=== PATIENT | female | born 1990 | race Native Hawaiian/Other Pacific Islander ===

== ENCOUNTER 2016-11-03 20:49 | Inpatient (IN) | payer BC ==
--- NOTE | 2016-11-03 21:27 | ED PDOC ---
HPI: Psych/Substance Abuse Time Seen by Provider: 11/03/16 20:59 Chief Complaint (Nursing): Psychiatric Evaluation Chief Complaint (Provider): Psychiatric Evaluation History Per: Patient History/Exam Limitations: no limitations Onset/Duration Of Symptoms: Mins (prior to arrival) Current Symptoms Are (Timing): Still Present Additional Complaint(s): Telma Abreu is a 26 year old female with a previous medical history of depression, who presents to the emergency department for a psychiatric evaluation of depression associated with suicidal ideation of Ativan overdose prior to arrival. Onset began when she recently saw an ex-boyfriend out on a date in which she stated she is recently after 10 years of marriage. Admits to binge drinking to cope but denies history of schizophrenia or bipolar disorder. Of note, patient reports seeing a psychiatrist on an outpatient basis since she was 10 years old. Psychiatrist suggested going to ED after she revealed her plan to overdose on Ativan. PMD: none provided Past Medical History Reviewed: Historical Data, Nursing Documentation, Vital Signs Vital Signs: Last Vital Signs Temp 98.5 F 11/03/16 20:51 Pulse 92 H 11/03/16 20:51 Resp 21 11/03/16 20:51 BP 123/85 11/03/16 20:51 Pulse Ox 99 11/03/16 20:51 - Medical History PMH: Depression Denies: Bipolar Disorder, Schizophrenia - Family History Family History: States: Unknown Family Hx - Social History Current smoker - smoking cessation education provided: No Alcohol: > 2 Drinks/Day Drugs: Denies - Home Medications Home Medications: Ambulatory Orders Medication Instructions Recorded No Known Home Med 11/03/16 - Allergies Allergies/Adverse Reactions: Allergies Allergy/AdvReac Type Severity Reaction Status Date / Time vicryl Allergy ITCHING Uncoded 11/03/16 20:58 Review of Systems ROS Statement: Except As Marked, All Systems Reviewed And Found Negative Psych: Positive for: Depression, Suicidal ideation Physical Exam - Reviewed Nursing Documentation Reviewed: Yes Vital Signs Reviewed: Yes - Physical Exam Appears: Positive for: Well, Non-toxic Head Exam: Positive for: ATRAUMATIC, NORMAL INSPECTION, NORMOCEPHALIC Skin: Positive for: Normal Color (no significant eccymosis noted), Warm, Dry Cardiovascular/Chest: Positive for: Regular Rate, Rhythm Respiratory: Positive for: Normal Breath Sounds. Negative for: Crackles, Rales , Rhonchi, Stridor Neurologic/Psych: Positive for: Alert, Oriented, Other (crying but compliant) - Laboratory Results Result Diagrams: 11/03/16 21:28 11/03/16 21:28 - ECG O2 Sat by Pulse Oximetry: 99 (RA) Pulse Ox Interpretation: Normal Medical Decision Making Medical Decision Making: Initial Impression: Depression; Suicidal ideation Initial Plan: * Alcohol serum * Labs * Drugs screen, urine * Crisis evaluation * Urine * 1:1 observation for suicide prevention * Suicide precautions PRN * Urinalysis * EKG * Reevaluate unspecified depressive d/o under MD kat[facility] pt is medically stable for admission. Scribe Attestation: Documented by Shruti Alves, acting as a scribe for Enedelia Rodriguez PA-C. Provider Scribe Attestation: All medical record entries made by the Scribe were at my direction and personally dictated by me. I have reviewed the chart and agree that the record accurately reflects my personal performance of the history, physical exam, medical decision making, and the department course for this patient. I have also personally directed, reviewed, and agree with the discharge instructions and disposition. Disposition - Clinical Impression Clinical Impression: Depressive disorder - Patient ED Disposition Is Patient to be Admitted: Yes - Disposition Disposition Time: 22:36 Condition: STABLE - Pt Status Changed To: Hospital Disposition Of: Inpatient - Admit Certification Admit to Inpatient:: After my assessment, the patient will require hospitalization for at least two midnights. This is because of the severity of symptoms shown, intensity of services needed, and/or the medical risk in this patient being treated as an outpatient.
[2016-11-03 21:35] LABS: BASO # 0.1 K/uL (0.0-0.2); BASO % 0.6 % (0.0-2.0); EOS # 0.3 K/uL (0.0-0.7); EOS % 3.7 % (0.0-4.0); HEMATOCRIT 40.1 % (34.0-47.0); LYMPH # 2.5 K/uL (1.0-4.3); LYMPH % 28.2 % (20.0-40.0); MEAN CELL VOLUME 89.4 fl (81.0-99.0); MEAN CORPUSCULAR HGB CONC 33.6 g/dL (33.0-37.0); MEAN PLATELET VOLUME 6.5 fl (7.2-11.7); MONO # 0.5 K/uL (0.0-0.8); MONO % 5.2 % (0.0-10.0); NEUT # 5.5 K/uL (1.8-7.0); NEUT % 62.3 % (50.0-75.0); RED CELL DISTRIBUTION WIDTH 12.4 % (11.5-14.5); WHITE BLOOD COUNT 8.9 K/uL (4.8-10.8)
[2016-11-03 21:55] LABS: RBC URINE 2 /hpf (0-3); URINE BACTERIA OCC (<OCC); URINE BILIRUBIN NEGATIVE (NEGATIVE); URINE BLOOD NEGATIVE (NEGATIVE); URINE COLOR YELLOW (YELLOW); URINE GLUCOSE (UA) NEG (Normal); URINE KETONE TRACE mg/dL (NEGATIVE); URINE LEUKOCYTE ESTERASE SMALL Leu/uL (Negative); URINE PROTEIN NEGATIVE (NEGATIVE); URINE UROBILINOGEN 0.2-1.0 mg/dL (0.2-1.0); WBC URINE 1 /hpf (0-5)
[2016-11-03 22:03] LABS: ALB/GLOB RATIO 1.4 (1.0-2.1); ALCOHOL SERUM 68 mg/dl (0-10); ALKALINE PHOSPHATASE 52 U/L (38-126); ALT/SGPT 36 U/L (9-52); AST/SGOT 22 U/L (14-36); BILIRUBIN,TOTAL 0.3 mg/dl (0.2-1.3); BLOOD UREA NITROGEN 11 mg/dl (7-17); CALCIUM 8.8 mg/dL (8.4-10.2); CARBON DIOXIDE 24 mmol/L (22-30); CHLORIDE 104 mmol/L (98-107); GFR AFRICAN-AMERICAN > 60; GLUCOSE,RANDOM 81 mg/dL (65-105); POTASSIUM 3.5 MMOL/L (3.6-5.0); SODIUM 140 mmol/l (132-148); TOTAL PROTEIN 7.9 G/DL (6.3-8.2)
--- NOTE | 2016-11-04 00:05 | ED PDOC ---
- Laboratory Results Result Diagrams: 11/03/16 21:28 11/03/16 21:28 - ECG O2 Sat by Pulse Oximetry: 99 - Progress ED Course And Treament: Patient no longer amenable to be admitted. We are awaiting [facility] screener for evaluation. Disposition - Clinical Impression Clinical Impression: Depressive disorder - POA Present On Arrival: None - Disposition Disposition: Transfer of Care Disposition Time: 05:39 Condition: STABLE Patient Signed Over To: Theresa Oneal Handoff Comments: pending [facility] eval
--- NOTE | 2016-11-04 06:05 | ED PDOC ---
- Laboratory Results Result Diagrams: 11/03/16 21:28 11/03/16 21:28 - ECG O2 Sat by Pulse Oximetry: 99 (RA) Pulse Ox Interpretation: Normal Medical Decision Making Medical Decision Making: Time: 0600 Initial impression: Depression Initial plan: Patient Signed out to me by ALMA Rosales. Pending [facility] Screening Scribe Attestation: Documented by Danitza Valencia, acting as a scribe for Theresa Oneal MD MD Scribe Attestation: All medical record entries made by the Scribe were at my direction and personally dictated by me. I have reviewed the chart and agree that the record accurately reflects my personal performance of the history, physical exam, medical decision making, and the department course for this patient. I have also personally directed, reviewed, and agree with the discharge instructions and disposition. Disposition Counseled Patient/Family Regarding: Studies Performed, Diagnosis - Clinical Impression Clinical Impression: Depression - POA Present On Arrival: None - Disposition Disposition: Transfer of Care Disposition Time: 07:00 Condition: STABLE
[2016-11-04 06:19] VITALS: TEMP 98.5
--- NOTE | 2016-11-04 07:24 | ED PDOC ---
- Laboratory Results Result Diagrams: 11/03/16 21:28 11/03/16 21:28 - ECG O2 Sat by Pulse Oximetry: 98 (RA) Pulse Ox Interpretation: Normal Medical Decision Making Medical Decision Makin:00 Patient was signed out to me by Theresa Oneal MD pending [facility] evaluation. \ 11:31 Patient was screened by [facility] and cleared for discharge. Scribe Attestation: Documented by Tammy Lara, acting as a scribe for Tammy Alvarez MD. Provider Scribe Attestation: All medical record entries made by the Scribe were at my direction and personally dictated by me. I have reviewed the chart and agree that the record accurately reflects my personal performance of the history, physical exam, medical decision making, and the department course for this patient. I have also personally directed, reviewed, and agree with the discharge instructions and disposition. Disposition - Clinical Impression Clinical Impression: Depressive disorder - Disposition Condition: STABLE
[2016-11-04 08:15] VITALS: BP 101/62; PULSE 81; RESP 16
--- NOTE | 2016-11-04 10:07 | RAD ---
HISTORY: cough COMPARISON: No prior study available for comparison. TECHNIQUE: Chest PA and lateral FINDINGS: LUNGS: No active pulmonary disease. Suspect minor biapical pleural thickening. At the PLEURA: No significant pleural effusion identified. No pneumothorax apparent. CARDIOVASCULAR: Normal. OSSEOUS STRUCTURES: No significant abnormalities. VISUALIZED UPPER ABDOMEN: Normal. OTHER FINDINGS: None. IMPRESSION: No active disease.
--- NOTE | 2016-11-04 14:02 | CARD ---
APPROVED REPORT EKG Measurement Heart [id number] <Conclusion> Normal sinus rhythm Normal ECG
[2016-11-07 15:57] VITALS: O2SAT 99
== END 2016-11-04 11:48 | disposition home or self-care (01) | DRG 881 ==
LOC: H.ER 20:49 → H.ERHOLD 22:42
PROVIDERS: ADMIT Psychiatry & Neurology Psychiatry; ATTEND Psychiatry & Neurology Psychiatry
DX: F32.9 Major depressive disorder, single episode, unspecified (principal); R45.851 Suicidal ideations; Z91.5 Personal history of self-harm